=== PATIENT | male | born 1980 | race Caucasian/White ===

== ENCOUNTER 2018-02-01 16:24 | Emergency (ER) | payer SELFPAY ==
[~2018-02-01] VITALS: Ht 172.7 cm; Wt 81.6 kg
[2018-02-01 17:03] VITALS: BP 139/86
[2018-02-01] MEDS ORDERED: ACETAMINOPHEN 500 MG TABLET PO ONE (17:30)
[2018-02-01] MEDS ORDERED: TRAM50TA PO (17:34)
[2018-02-01] MEDS ORDERED: PENI500T PO (17:34)
--- NOTE | 2018-02-01 17:34 | PHYS DOC ---
Past Medical History Past Medical History: No Pertinent History Past Surgical History: No Surgical History Smoking: Cigarettes Alcohol Use: None Drug Use: None Adult General Chief Complaint Chief Complaint: DENTAL PROBLEM HPI HPI 38-year-old male presents to ER with complaints of lt lower dental pain/gum swelling. Pt reports he is daily cigarette smoker with multiple dental caries. He reports he took aleve today around 12 p.m. with minimal relief in pain. He denies fever/chills, difficulty swallowing, or throat/tongue pain or swelling. Pt reports he does have increased pain with chewing solid foods. He reports he has been using warm/salt swishes. Review of Systems Review of Systems Constitutional: Denies fever or chills [] Eyes: Denies change in visual acuity, redness, or eye pain. Reports discomfort/ pressure in lt ear/lt jaw HENT: Denies nasal congestion or sore throat. Denies throat/tongue swelling or pain Respiratory: Denies cough or shortness of breath [] Cardiovascular: Denies CP/palpitations GI: Denies abdominal pain, nausea, vomiting Musculoskeletal: Reports lt jaw pain- denies difficulty speaking/opening mouth Integument: Denies facial swelling Neurologic: Denies headache, focal weakness or sensory changes [] All other systems were reviewed and found to be within normal limits, except as documented in this note. Allergies Allergies Allergies Coded Allergies Type Severity Reaction Last Updated Verified codeine Allergy Intermediate 02/01/18 Yes Physical Exam Physical Exam Constitutional: Well developed, well nourished, no acute distress, non-toxic appearance. [] HENT: Normocephalic, atraumatic, bilateral external ears normal, oropharynx moist, no oral exudates, nose normal. [] Eyes: PERRLA, EOMI, conjunctiva normal, no discharge. [] Neck: Normal range of motion, no tenderness, supple, no stridor. [] Cardiovascular:Heart rate regular rhythm, no murmur [] Lungs & Thorax: Bilateral breath sounds clear to auscultation [] Abdomen: Bowel sounds normal, soft, no tenderness, no masses, no pulsatile masses. [] Skin: Warm, dry, no erythema, no rash. [] Back: No tenderness, no CVA tenderness. [] Extremities: No tenderness, no cyanosis, no clubbing, ROM intact, no edema. [] Neurologic: Alert and oriented X 3, normal motor function, normal sensory function, no focal deficits noted. [] Psychologic: Affect normal, judgement normal, mood normal. [] Current Patient Data Vital Signs Vital Signs Date Time Temp Pulse Resp B/P (MAP) Pulse Ox O2 Delivery O2 Flow Rate FiO2 02/01/18 17:03 98.4 72 16 139/86 (103) 97 Room Air 98.4 EKG EKG [] Radiology/Procedures Radiology/Procedures [] Course & Med Decision Making Course & Med Decision Making Discussed smoking cessation and need for dental follow-up. Dental resource sheet provided to pt. Dose of tylenol provided while in ER. No palp. or visible abscess seen- pt had multiple dental caries with strong odor of cigarettes on breath. Discussed continued use of OTC meds tylenol/ibuprofen and will provide sm. quantity of tramadol for pain. Pt advised on continued warm/salt swishes. Education provided on s&s to return to ER for or to see dentist for. Discharge instructions were discussed and patient requested work note for today. Megan Disclaimer Megan Disclaimer This electronic medical record was generated, in whole or in part, using a voice recognition dictation system. Departure Departure Impression: Primary Impression: Dental caries Disposition: HOME, SELF-CARE Condition: STABLE Referrals: NO PCP (PCP) Patient Instructions: Dental Caries, Smoking Cessation Additional Instructions: Drink plenty of water with soft foods. Avoid smoking. Tylenol and/or ibuprofen as directed on container for pain. You need to find a dentist to follow-up with for further care as you have multiple cavities that need cared for. Continue warm/salt swishes. Scripts Penicillin V Potassium (PENICILLIN V POTASSIUM) 500 Mg Tablet 1 TAB PO QID for 7 Days, #28 TAB 0 Refills Prov: ELENA HERNÁNDEZ APRN 02/01/18 Tramadol Hcl (TRAMADOL HCL) 50 Mg Tablet 50 MG PO q6 hrs prn PRN for PAIN, #10 TAB 0 Refills Prov: ELENA HERNÁNDEZ APRN 02/01/18 ELENA HERNÁNDEZ APRN Feb 01, 2018 17:34
== END 2018-02-01 17:46 | disposition home or self-care (01) ==
LOC: ER 16:24
DX: K02.9 Dental caries, unspecified (principal); F17.210 Nicotine dependence, cigarettes, uncomplicated; Z88.5 Allergy status to narcotic agent
CPT/HCPCS: 99283

== ENCOUNTER 2019-06-21 15:38 | Emergency (ER) | payer OTHER ==
[~2019-06-21] VITALS: Ht 172.7 cm; Wt 82.0 kg
[~2019-06-21 15:38] MED LIST: PENI500T PO; TRAM50TA PO
[2019-06-21 15:55] VITALS: BP 134/92
--- NOTE | 2019-06-21 16:03 | PHYS DOC ---
Past Medical History Past Medical History: No Pertinent History Past Surgical History: No Surgical History Alcohol Use: None Drug Use: None Adult General Chief Complaint Chief Complaint: BACK PAIN OR INJURY HPI HPI Patient is a 39 year old male who presents to the ED today complaining of 10 out of 10 left low back pain radiating to the left lower extremity that began yesterday after he lifted a bag of salt for snow removal. Patient reports he developed immediate pain that radiated into the left lower extremity. Denies falling on his back. Denies any numbness or tingling to bilateral lower extremities. Denies any loss of bowel bladder function. Review of Systems Review of Systems Constitutional: Denies fever or chills [] GI: Denies abdominal pain, nausea, vomiting, bloody stools or diarrhea [] : Denies dysuria or hematuria [] Musculoskeletal: Reports left low back pain radiating to the left lower extremity Integument: Denies rash or skin lesions [] Neurologic: Denies headache, focal weakness or sensory changes [] All other systems were reviewed and found to be within normal limits, except as documented in this note. Allergies Allergies Allergies Coded Allergies Type Severity Reaction Last Updated Verified codeine Allergy Intermediate 02/01/18 Yes Physical Exam Physical Exam Constitutional: Well developed, well nourished, no acute distress, non-toxic appearance. [] Abdomen: Bowel sounds normal, soft, no tenderness, no masses, no pulsatile masses. [] Skin: Warm, dry, no erythema, no rash. [] Back: Diffuse paraspinal muscle tenderness the left lumbar spine worse on the left SI joint, no midline lumbar spine tenderness, no CVA tenderness. [] Extremities: No tenderness, no cyanosis, no clubbing, ROM intact, no edema. [] Neurologic: Alert and oriented X 3, normal motor function, normal sensory function, no focal deficits noted. [] Psychologic: Affect normal, judgement normal, mood normal. [] EKG EKG [] Radiology/Procedures Radiology/Procedures [] Course & Med Decision Making Course & Med Decision Making Pertinent Labs and Imaging studies reviewed. (See chart for details) This is a 39-year-old female patient presented to the ED today complaining of left low back pain radiating to the left lower extremity that began yesterday after he lifted a bag of salt. Patient has no cauda equina syndrome symptoms. He'll be managed as outpatient. He was provided instructions to follow-up with the PCP in 1-2 weeks. Dragon Disclaimer Dragon Disclaimer This electronic medical record was generated, in whole or in part, using a voice recognition dictation system. Departure Departure Impression: Primary Impression: Sciatica, left side Disposition: HOME, SELF-CARE Condition: STABLE Referrals: NO PCP (PCP) RL VINCENT MD follow with the provided doctor in 1 week Patient Instructions: Sciatica Additional Instructions: You were evaluated in the emergency room and noted to have sciatica. Take the prescribed medications as ordered. Follow-up with your primary care doctor or the doctor provided in 1-2 weeks. Consider getting a heating pad for your low back. Scripts Methocarbamol (METHOCARBAMOL) 500 Mg Tablet 500 MG PO TID, #30 TAB Prov: MUTNATACHA MELTON MANAGER INTERVENTIONAL 06/21/19 Tramadol Hcl (TRAMADOL HCL) 50 Mg Tablet 50 MG PO Q6HRS PRN for PAIN, #20 TAB Prov: MUTNATACHA MELTON MANAGER INTERVENTIONAL 06/21/19 Methylprednisolone (MEDROL) 4 Mg Tab.ds.pk 1 PKG PO UD, #1 PKG Prov: NATACHA BUCK MANAGER INTERVENTIONAL 06/21/19 NATACHA BUCK MANAGER INTERVENTIONAL Jun 21, 2019 16:03
[2019-06-21] MEDS ORDERED: METH500T7 PO (16:09)
[2019-06-21] MEDS ORDERED: METH4TAB2 PO (16:09)
[2019-06-21] MEDS ORDERED: TRAM50TA PO (16:09)
== END 2019-06-21 16:17 | disposition home or self-care (01) ==
LOC: ER 15:38
DX: M54.42 Lumbago with sciatica, left side (principal); Z88.5 Allergy status to narcotic agent
CPT/HCPCS: 99283